=== PATIENT | male | born 1945 | race Caucasian/White ===

== ENCOUNTER 2017-11-06 07:13 | Emergency (ER) | payer MEDICARE ==
[2017-11-06 07:55] VITALS: BP 130/83
[2017-11-06] MEDS ORDERED: cefTRIAXone VIAL(*) 1,000 MG VIAL IM ONE (08:07)
[2017-11-06] MEDS ORDERED: Lidocaine 1% MPF* 2 ML VIAL INJ ONE (08:13)
[2017-11-06] MEDS ORDERED: Lidocaine 1% MPF* 2 ML VIAL ONE (08:17)
--- NOTE | 2017-11-06 08:25 | UC ---
Complaint Male HPI - HPI Summary HPI Summary: Bladder area pain starting yesterday. No fever or chills. No flank pain. He says this feels like prior UTI and does not feel like prior kidney stones. He is currently not on antibiotics. He self catheterizes 4x/day. He is still getting urine out. - History of Current Complaint Chief Complaint: UCGU Stated Complaint: URINARY Time Seen by Provider: 11/06/17 07:14 Hx Obtained From: Patient Onset/Duration: Gradual Onset, Lasting Hours Timing: Constant, Lasting Hours Severity Initially: Moderate Severity Currently: Moderate Pain Intensity: 7 Location: Suprapubic Character: Constant Pressure Aggravating Factor(s): Nothing Alleviating Factor(s): Nothing Associated Signs And Symptoms: Positive: Nausea. Negative: Diaphoresis, Back Pain, Fever, Hematuria, Dysuria, Constipation, Penile Swelling, Penile Discharge - Allergies/Home Medications Allergies/Adverse Reactions: Allergies Allergy/AdvReac Type Severity Reaction Status Date / Time Tramadol AdvReac See Comment Verified 11/06/17 07:36 Home Medications: Home Medications Aspirin [Aspirin 81 MG TAB] 81 mg PO SEE INSTRUCTIONS 11/06/17 [History Confirmed 11/06/17] Atorvastatin* [Lipitor*] 20 mg PO SEE INSTRUCTIONS 11/06/17 [History Confirmed 11/06/17] Metoprolol Succinate [Metoprolol Succinate ER] 50 mg PO SEE INSTRUCTIONS [History Confirmed 11/06/17] Ranitidine HCl [Zantac 150 Maximum Streng] 150 mg PO DAILY 11/06/17 [History Confirmed 11/06/17] PMH/Surg Hx/FS Hx/Imm Hx Previously Healthy: No - bladder and prostate disease. Kidney stones. UTI. - Surgical History Surgical History: Yes Surgery Procedure, Year, and Place: Left Hip Partial Replacement, 2013, [facility]. Back Tumor, 1980 1991. 6 kidney stone removed in April 2015 - Family History Known Family History: Positive: Other - No bladder rleated family history. - Social History Alcohol Use: Rare Substance Use Type: None Smoking Status (MU): Former Smoker Type: Cigarettes Amount Used/How Often: 2-3 daily Length of Time of Smoking/Using Tobacco: 48 Years Have You Smoked in the Last Year: Yes Household Exposure Type: Cigarettes Review of Systems Gastrointestinal: Abdominal Pain All Other Systems Reviewed And Are Negative: Yes Physical Exam Triage Information Reviewed: Yes Appearance: Well-Appearing, No Pain Distress, Well-Nourished Vital Signs: Initial Vital Signs Temp 97.2 F 11/06/17 07:47 Pulse 89 11/06/17 07:47 Resp 18 11/06/17 07:47 BP 130/83 11/06/17 07:47 Pulse Ox 98 11/06/17 07:47 Vital Signs Reviewed: Yes Eyes: Positive: Conjunctiva Clear ENT: Positive: Normal ENT inspection Neck: Positive: Supple, Nontender, No Lymphadenopathy Respiratory: Positive: Normal breath sounds, No respiratory distress, No accessory muscle use. Negative: Respiratory distress, Decreased breath sounds, Accessory muscle use, Crackles, Rhonchi, Stridor Cardiovascular: Positive: RRR, No Murmur, Brisk Capillary Refill Abdomen Description: Negative: CVA Tenderness (R), CVA Tenderness (L), Distended , Guarding Musculoskeletal: Positive: ROM Intact, No Edema Neurological: Positive: Alert, Muscle Tone Normal, Fatigued Psychological: Positive: Age Appropriate Behavior Skin: Negative: rashes Complaint Male Course/Dx - Course Course Of Treatment: No fever or tachycardia, non toxic. No chills. He does not have distended bladder on exam. NO signs of kidney stone such as flank pain, tenderness or active vomiting. He appears quite comfortable. We will aggressively treat this uti. He agrees to return for any fever, chills or worsening symptoms. - Differential Dx/Diagnosis Provider Diagnoses: UTI. bladder pain Discharge - Discharge Plan Condition: Good Disposition: HOME Prescriptions: Acetaminop/Codeine 30 MG TAB* [Tylenol/Codeine 30 MG TAB*] 1 tab PO Q8H PRN #6 tab MDD 2 PRN Reason: Pain Cephalexin CAP* [Keflex CAP*] 500 mg PO TID #30 cap Patient Education Materials: Urinary Tract Infection in Men (ED) Referrals: Crystal Carrillo MD [Primary Care Provider] - If Needed
== END 2017-11-06 08:51 | disposition home or self-care (01) ==
LOC: UCCORT 07:13
DX: N39.0 Urinary tract infection, site not specified (principal); B96.89 Other specified bacterial agents as the cause of diseases classified elsewhere; R39.89 Other symptoms and signs involving the genitourinary system; R11.0 Nausea; Z79.82 Long term (current) use of aspirin; Z87.440 Personal history of urinary (tract) infections; Z87.442 Personal history of urinary calculi; Z96.642 Presence of left artificial hip joint; Z88.5 Allergy status to narcotic agent; Z87.891 Personal history of nicotine dependence
CPT/HCPCS: 81003; 87077; 87086; 96372; 99212; G0463; J0696